=== PATIENT | male | born 1970 | race Two or more races ===

== ENCOUNTER 2022-07-03 12:26 | Inpatient (IN) | payer MEDICAID, OTHER ==
[~2022-07-03] VITALS: Ht 170.2 cm; Wt 119.8 kg
[2022-07-03 14:19] LABS: Basophils # (auto) 0.1 10 ^3/uL (0-0.2); Basophils % (auto) 0.6 % (0.0-2.0); Eosinophils # (auto) 0.2 10 ^3/uL (0-0.8); Eosinophils % (auto) 2.4 % (0.0-7.0); Hematocrit 41.9 % (41.0-53.0); Hemoglobin 14.1 g/dL (13.5-17.5); Lymphocytes # (auto) 1.8 10 ^3/uL (0.4-5.4); Lymphocytes % (auto) 19.7 % (10.0-50.0); Mean Corpuscular Hemoglobin 28.9 pg (28.0-32.0); Mean Corpuscular Hgb Conc. 33.6 g/dL (32.0-36.0); Monocytes # (auto) 0.5 10 ^3/uL (0-1.3); Monocytes % (auto) 5.1 % (0.0-12.0); Neutrophils # (auto) 6.6 10 ^3/uL (1.6-8.6); Neutrophils % (auto) 72.2 % (37.0-80.0); Nucleated Red Blood Cells % 0.2 %; Red Blood Cells 4.87 10^6/uL (4.5-5.90); Red Cell Distribution Width 13.2 % (11.8-14.3); White Blood Cell 9.1 10^3/uL (4.4-10.8)
[2022-07-03 14:45] LABS: Albumin 2.9 g/dL (3.4-5.0); Calcium 8.4 mg/dL (8.5-10.1); Potassium 4.1 mmol/L (3.5-5.1)
[2022-07-03 14:48] LABS: BUN/Creatinine Ratio 19.6; Bilirubin, Total 0.3 mg/dL (0.2-1.0); Total Protein 6.9 g/dL (6.4-8.2)
[2022-07-04] MEDS ORDERED: VANCOMYCIN 1GM/250ML 250 ML IV ONE (02:15)
[2022-07-04 02:19] LABS: Urine Bacteria FEW /hpf (None Seen); Urine Blood Negative /uL (Negative); Urine Specific Gravity 1.029 (1.001-1.035); Urine Sperm PRESENT /hpf (None Seen); Urine WBC 13 /hpf (0 - 3)
[2022-07-04] MEDS ORDERED: ONDANSETRON HCL 4 MG/2 ML VIAL IV PRN (06:15)
[2022-07-04] MEDS ORDERED: ACETAMINOPHEN 325 MG TAB PO PRN (06:15)
[2022-07-04] MEDS ORDERED: HYDROcodone-ACET 5/325MG TAB PO PRN (06:15)
[2022-07-04] MEDS ORDERED: DEXTROSE (50%) 50ML SYRG IV PRN (06:15)
[2022-07-04] MEDS ORDERED: TEMAZEPAM 15 MG CAP PO PRN (06:15)
[2022-07-04] MEDS: ACCU-CHEK COMFORT CURVE STRIP VI SCH ×4 (06:57→23:21)
[2022-07-04] MEDS: InsuLIN REG 1unit/0.01ml Soln (100units/ml) SC SCH ×4 (06:57→22:00)
[2022-07-04] MEDS: cefTRIAXone 1GM/50ML D5W 50 ML IV SCH ×2 (10:01→20:02)
[2022-07-04] MEDS: PANTOPRAZOLE 40 MG TAB PO SCH (10:03)
[2022-07-04 22:00] VITALS: BP 151/78
[2022-07-04] MEDS: CLINDAMYCIN 600MG IV 50 ML IV SCH (22:52)
[2022-07-04] MEDS: INSULIN LANTUS (GLARGINE) 1 /0.01ml (100units/ml) SC SCH (23:22)
[2022-07-05 05:00] VITALS: BP 137/80
[2022-07-05 05:10] LABS: Basophils # (auto) 0 10 ^3/uL (0-0.2); Basophils % (auto) 0.5 % (0.0-2.0); Eosinophils # (auto) 0.3 10 ^3/uL (0-0.8); Eosinophils % (auto) 2.9 % (0.0-7.0); Hemoglobin 14.2 g/dL (13.5-17.5); Lymphocytes % (auto) 21.1 % (10.0-50.0); Mean Corpuscular Hgb Conc. 33.1 g/dL (32.0-36.0); Mean Corpuscular Volume 87.5 fL (80.0-100.0); Monocytes # (auto) 0.8 10 ^3/uL (0-1.3); Monocytes % (auto) 8.2 % (0.0-12.0); Neutrophils # (auto) 6.5 10 ^3/uL (1.6-8.6); Neutrophils % (auto) 67.3 % (37.0-80.0); Red Blood Cells 4.92 10^6/uL (4.5-5.90); Red Cell Distribution Width 13.6 % (11.8-14.3); White Blood Cell 9.6 10^3/uL (4.4-10.8)
[2022-07-05 05:26] LABS: Potassium 3.6 mmol/L (3.5-5.1)
[2022-07-05 05:32] LABS: Albumin 2.8 g/dL (3.4-5.0); Bilirubin, Total 0.3 mg/dL (0.2-1.0); Calcium 8.4 mg/dL (8.5-10.1)
[2022-07-05] MEDS: CLINDAMYCIN 600MG IV 50 ML IV SCH ×3 (06:05→21:55)
[2022-07-05] MEDS: InsuLIN REG 1unit/0.01ml Soln (100units/ml) SC SCH ×4 (06:16→22:02)
[2022-07-05] MEDS: ACCU-CHEK COMFORT CURVE STRIP VI SCH ×4 (06:16→21:55)
[2022-07-05 09:58] VITALS: BP 147/86
[2022-07-05] MEDS: PANTOPRAZOLE 40 MG TAB PO SCH (10:13)
[2022-07-05] MEDS ORDERED: ERTU15TA PO (12:58)
[2022-07-05] MEDS ORDERED: ATOR10TA PO (12:58)
[2022-07-05] MEDS ORDERED: GLIP10TA9 PO (12:58)
[2022-07-05] MEDS ORDERED: METF-370 PO (12:58)
[2022-07-05 12:59] VITALS: BP 146/85
[2022-07-05 13:00] VITALS: BP 164/96
[2022-07-05] MEDS: INSULIN LANTUS (GLARGINE) 1 /0.01ml (100units/ml) SC SCH (21:57)
[2022-07-05 22:00] VITALS: BP 127/86
[2022-07-06 05:00] VITALS: BP 132/79
[2022-07-06] MEDS: CLINDAMYCIN 600MG IV 50 ML IV SCH (06:23)
[2022-07-06] MEDS: ACCU-CHEK COMFORT CURVE STRIP VI SCH ×4 (06:41→22:02)
[2022-07-06] MEDS: InsuLIN REG 1unit/0.01ml Soln (100units/ml) SC SCH ×4 (06:44→22:00)
[2022-07-06 09:17] VITALS: BP 153/89
[2022-07-06] MEDS: cefTRIAXone 1GM/50ML D5W 50 ML IV SCH (09:18)
[2022-07-06] MEDS: PANTOPRAZOLE 40 MG TAB PO SCH (09:19)
[2022-07-06] MEDS: DAKINS QUARTER STR 0.125% (NaHypochlorite) 473 ML TOPICAL SOL TOP SCH (10:00)
[2022-07-06 10:49] LABS: INR 0.95 (0.9-1.15); Partial Thromboplastin Time 26.6 sec (24.6-33.4)
[2022-07-06 12:21] VITALS: BP 148/88
[2022-07-06] MEDS ORDERED: VANCOMYCIN PER PHARMACY 0 MG IV SCH (13:45)
[2022-07-06] MEDS ORDERED: LOSA-69 PO (13:46)
[2022-07-06] MEDS ORDERED: DAKI0.12 TOP (13:49)
[2022-07-06] MEDS: VANCOMYCIN 1GM/250ML 250 ML IV SCH (16:03)
[2022-07-06] MEDS ORDERED: LIDOCAINE 1% (LOCAL ANESTH.) PF 5ml SDV ID ONE (16:15)
[2022-07-06 16:19] VITALS: BP 149/87
[2022-07-06] MEDS: glipiZIDE 5 MG TAB PO SCH (18:51)
[2022-07-06] MEDS: metFORMIN HYDROCHLORIDE 500 MG TAB PO SCH (18:51)
[2022-07-06 22:00] VITALS: BP 144/78
[2022-07-06] MEDS: SODIUM CHLOR 0.9% PF (SALINE LOCK) 10ML VIAL/SYR IV SCH (22:01)
[2022-07-07] MEDS: VANCOMYCIN 1GM/250ML 250 ML IV SCH ×2 (01:03→11:01)
[2022-07-07 05:00] VITALS: BP 140/94
[2022-07-07 05:23] LABS: Albumin 2.8 g/dL (3.4-5.0); Calcium 8.2 mg/dL (8.5-10.1); Potassium 3.7 mmol/L (3.5-5.1)
[2022-07-07] MEDS: InsuLIN REG 1unit/0.01ml Soln (100units/ml) SC SCH ×2 (06:24→11:30)
[2022-07-07] MEDS: ACCU-CHEK COMFORT CURVE STRIP VI SCH ×2 (06:24→11:30)
[2022-07-07] MEDS: glipiZIDE 5 MG TAB PO SCH (06:41)
[2022-07-07] MEDS: metFORMIN HYDROCHLORIDE 500 MG TAB PO SCH (08:11)
[2022-07-07 09:04] VITALS: BP 131/83
[2022-07-07] MEDS: PANTOPRAZOLE 40 MG TAB PO SCH (10:00)
[2022-07-07] MEDS: DAKINS QUARTER STR 0.125% (NaHypochlorite) 473 ML TOPICAL SOL TOP SCH (10:00)
[2022-07-07] MEDS ORDERED: CEFTRIAXONE SODIUM 2 GM in D5W 5% 50 ML IV SCH (10:00)
[2022-07-07] MEDS: SODIUM CHLOR 0.9% PF (SALINE LOCK) 10ML VIAL/SYR IV SCH (11:01)
== END 2022-07-07 13:15 | disposition home health service (06) | DRG 344 ==
LOC: ER 12:26 → OVERFLOW 07-04 06:16 → CENTRAL 07-04 22:04
PROVIDERS: ADMIT Nurse Practitioner; ATTEND Internal Medicine Nephrology
PROC: 02HV33Z Insertion of Infusion Device into Superior Vena Cava, Percutaneous Approach (ICD-10-PCS; principal; 2022-07-06)
PROC: B548ZZA Ultrasonography of Superior Vena Cava, Guidance (ICD-10-PCS; 2022-07-06)
DX: E11.69 Type 2 diabetes mellitus with other specified complication (principal); M86.8X7 Other osteomyelitis, ankle and foot; E11.621 Type 2 diabetes mellitus with foot ulcer; E11.40 Type 2 diabetes mellitus with diabetic neuropathy, unspecified; E11.21 Type 2 diabetes mellitus with diabetic nephropathy; L97.519 Non-pressure chronic ulcer of other part of right foot with unspecified severity; E11.65 Type 2 diabetes mellitus with hyperglycemia; E66.01 Morbid (severe) obesity due to excess calories; E78.5 Hyperlipidemia, unspecified; L08.9 Local infection of the skin and subcutaneous tissue, unspecified; Z20.822 Contact with and (suspected) exposure to COVID-19; E11.622 Type 2 diabetes mellitus with other skin ulcer; I10 Essential (primary) hypertension; Z89.431 Acquired absence of right foot; Z68.41 Body mass index [BMI] 40.0-44.9, adult
CPT/HCPCS: 36415; 36569; 73630; 73718; 80053; 80069; 81001; 82962; 83036; 83605; 85025; 85610; 85652; 85730; 86141; 87040; 87077; 87186; 87205; 93925; 96365; 96367; G0378; J0696; J1815; J3490; J7060

== ENCOUNTER 2022-12-15 09:24 | Emergency (ER) | payer MEDICAID ==
[~2022-12-15] VITALS: Ht 170.2 cm; Wt 123.0 kg
[~2022-12-15 09:24] MED LIST: ATOR10TA PO; DAKI0.12 TOP; ERTU15TA PO; GLIP10TA9 PO; LOSA-69 PO; METF-370 PO
[2022-12-15 09:30] VITALS: BP 148/79
[2022-12-15 10:15] LABS: Urine Bacteria NONE SEEN /hpf (None Seen); Urine Blood 2+ /uL (Negative); Urine Specific Gravity 1.033 (1.001-1.035); Urine WBC 90 /hpf (0 - 3)
[2022-12-15] MEDS ORDERED: cefTRIAXone SOD 1,000 MG VL IM ONE (12:00)
[2022-12-15] MEDS ORDERED: LEVO750T64 PO (12:59)
[2022-12-15] MEDS ORDERED: ACET1CAP14 PO (13:02)
== END 2022-12-15 12:58 | disposition home or self-care (01) ==
LOC: ER 09:24
DX: N12 Tubulo-interstitial nephritis, not specified as acute or chronic (principal); K76.0 Fatty (change of) liver, not elsewhere classified; K80.20 Calculus of gallbladder without cholecystitis without obstruction; E11.9 Type 2 diabetes mellitus without complications; E78.5 Hyperlipidemia, unspecified; Z79.2 Long term (current) use of antibiotics; Z79.899 Other long term (current) drug therapy
CPT/HCPCS: 74176; 81001; 87086; 87088; 87186; 96372; 99285; J0696

== ENCOUNTER 2023-05-19 01:33 | Emergency (ER) | payer MEDICAID ==
[~2023-05-19] VITALS: Ht 170.2 cm; Wt 122.0 kg
[~2023-05-19 01:33] MED LIST changes: +ACET1CAP14 PO; +LEVO750T40 PO; -LOSA-69 PO; +LOSA50TA46 PO
[2023-05-19 02:21] LABS: Basophils # (auto) 0 10 ^3/uL (0-0.2); Basophils % (auto) 0.5 % (0.0-2.0); Eosinophils # (auto) 0.3 10 ^3/uL (0-0.8); Eosinophils % (auto) 3.2 % (0.0-7.0); Hematocrit 44.1 % (41.0-53.0); Hemoglobin 14.9 g/dL (13.5-17.5); Lymphocytes # (auto) 2.9 10 ^3/uL (0.4-5.4); Lymphocytes % (auto) 33.4 % (10.0-50.0); Mean Corpuscular Hgb Conc. 33.8 g/dL (32.0-36.0); Mean Corpuscular Volume 88.9 fL (80.0-100.0); Monocytes # (auto) 0.6 10 ^3/uL (0-1.3); Monocytes % (auto) 7.1 % (0.0-12.0); Neutrophils # (auto) 4.8 10 ^3/uL (1.6-8.6); Neutrophils % (auto) 55.8 % (37.0-80.0); Red Blood Cells 4.96 10^6/uL (4.5-5.90); White Blood Cell 8.6 10^3/uL (4.4-10.8)
[2023-05-19 02:29] LABS: INR 0.98 (0.9-1.15); Partial Thromboplastin Time 27.8 SEC (24.5-34.5)
[2023-05-19 02:44] LABS: Albumin 3.3 g/dL (3.4-5.0); BUN/Creatinine Ratio 17.5 (10.0-20.0); Calcium 8.8 mg/dL (8.5-10.1); Magnesium 2.5 mg/dL (1.6-2.6); Potassium 4.2 mmol/L (3.5-5.1)
[2023-05-19 02:47] LABS: Bilirubin, Total 0.2 mg/dL (0.2-1.0); Total Protein 6.6 g/dL (6.4-8.2)
[2023-05-19] MEDS ORDERED: SODIUM CHLORIDE 0.9% 1,000 ML IVB ONE (03:15)
[2023-05-19 03:46] LABS: Urine Bacteria FEW /hpf (None Seen); Urine Blood Negative /uL (Negative); Urine Specific Gravity 1.038 (1.001-1.035); Urine WBC 1 /hpf (0 - 3)
[2023-05-19] MEDS ORDERED: IOHEXOL 350 MG/ML 100ML IJ ONE (05:59)
[2023-05-19 09:22] VITALS: PULSE 78; RESP 16; O2SAT 98
[2023-05-19 12:18] VITALS: BP 142/81; PULSE 84; RESP 15; TEMP 97.9; O2SAT 95
== END 2023-05-19 12:48 | disposition short-term general hospital (02) ==
LOC: ER 01:34
DX: H57.89 Other specified disorders of eye and adnexa (principal); H53.2 Diplopia; C71.9 Malignant neoplasm of brain, unspecified; E11.9 Type 2 diabetes mellitus without complications; Z79.1 Long term (current) use of non-steroidal anti-inflammatories (NSAID); Z79.2 Long term (current) use of antibiotics; Z79.899 Other long term (current) drug therapy
CPT/HCPCS: 36415; 70450; 70496; 71045; 80053; 81001; 83735; 83880; 84443; 84484; 85025; 85610; 85730; 93005; 96360; 96361; 99285; J7030; Q9967